=== PATIENT | female | born 1995 | race Two or more races ===

== ENCOUNTER 2018-04-20 02:22 | Inpatient (IN) | payer OTHER ==
[~2018-04-20] VITALS: Ht 157.5 cm; Wt 74.8 kg
[2018-04-20] MEDS ORDERED: PRENATAL TABLE1 EAC1 PO (12:09)
== END 2018-04-22 18:40 | disposition home or self-care (01) | DRG 807 ==
LOC: OBS/DEL 02:22 → OB/GYN 11:33 → LDR 11:33 → OB/GYN 14:03
PROC: 10E0XZZ Delivery of Products of Conception, External Approach (ICD-10-PCS; principal; 2018-04-20)
PROC: 0HQ9XZZ Repair Perineum Skin, External Approach (ICD-10-PCS; 2018-04-20)
PROC: 10907ZC Drainage of Amniotic Fluid, Therapeutic from Products of Conception, Via Natural or Artificial Opening (ICD-10-PCS; 2018-04-20)
PROC: 4A1HXCZ Monitoring of Products of Conception, Cardiac Rate, External Approach (ICD-10-PCS; 2018-04-20)
DX: O70.0 First degree perineal laceration during delivery (principal); Z37.0 Single live birth; Z3A.39 39 weeks gestation of pregnancy; Z22.330 Carrier of Group B streptococcus